=== PATIENT | female | born 1970 | race Caucasian/White ===

== ENCOUNTER 2016-06-20 20:28 | Emergency (ER) | payer MEDICAID ==
[2015-10-20 11:06] VITALS: Ht 167.6 cm; Wt 126.1 kg
[~2016-06-20] VITALS: Ht 167.6 cm; Wt 126.1 kg
[~2016-06-20 20:28] MED LIST: ALPR0.2583 PO; ALPR0.5T96 PO; ARIP5TAB10 PO; ASPI-1063 PO; BENA10TA2 PO; CALCIUM D; CLON1PAT2 TD; CLON1TAB4 PO; CLON2TAB4 PO; DIVA250T PO; DIVA500T7 PO; ESCI20TA PO; FURO-150 PO; LANS30CA10 PO; LIP10 PO; LIP20 PO; LOSA50TA3 PO; MULT PO; PARO10TA26 PO; POTA8CAP PO; QUET50TA13 PO
[2016-06-20 21:00] VITALS: BP 157/94; PULSE 62; RESP 16; TEMP 97.2; O2SAT 96
[2016-06-20] MEDS ORDERED: KETOROLAC TROMETHAMINE 30 MG VIAL IVP ONE (22:30)
[2016-06-20] MEDS ORDERED: NACL 0.9% 1,000 ML IV ONE (22:30)
[2016-06-20 22:55] LABS: BILIRUBIN,URINE NEGATIVE (NEGATIVE); BLOOD, URINE NEGATIVE (NEGATIVE); CLARITY/URINE CLEAR (CLEAR); COLOR,URINE YELLOW (YELLOW); GLUCOSE,URINE NEGATIVE (NEGATIVE); KETONES,URINE NEGATIVE (NEGATIVE); LEUKOCYTE ESTERASE ,URINE NEGATIVE (NEGATIVE); NITRITE, URINE NEGATIVE (NEGATIVE); PH,URINE 6.5 (5.0-8.0); PROTEIN URINE NEGATIVE (NEGATIVE); UROBILINOGEN,URINE 0.2 (0.2-1.0)
[2016-06-21 01:11] VITALS: BP 148/89; PULSE 54; RESP 16; TEMP 97.2; O2SAT 96
== END 2016-06-21 01:11 | disposition home or self-care (01) ==
LOC: SED 20:28
DX: A08.4 Viral intestinal infection, unspecified (principal); K21.9 Gastro-esophageal reflux disease without esophagitis; I10 Essential (primary) hypertension; E78.5 Hyperlipidemia, unspecified; Z86.718 Personal history of other venous thrombosis and embolism; Z88.1 Allergy status to other antibiotic agents; Z88.8 Allergy status to other drugs, medicaments and biological substances
CPT/HCPCS: 36415; 81003; 81025; 86710; 93005; 96361; 96374; 99285; J1885; J7030

== ENCOUNTER 2016-08-29 10:52 | Emergency (ER) | payer MEDICAID ==
[~2016-08-29] VITALS: Ht 165.1 cm; Wt 128.4 kg
[~2016-08-29 10:52] MED LIST changes: -ALPR0.5T96 PO; -BENA10TA2 PO; -CLON1PAT2 TD; -FURO-150 PO; -LANS30CA10 PO; -PARO10TA26 PO; -POTA8CAP PO; -QUET50TA13 PO
[2016-08-29 10:55] VITALS: BP_SYST 155
[2016-08-29] MEDS ORDERED: BACITRACIN 1 GM OINT TP ONE (11:15)
[2016-08-29] MEDS ORDERED: DIPH-TET-PERTUS Vaccine 0.5 ML VIAL (ADACEL) IM ONE (11:15)
[2016-08-29 12:15] VITALS: BP_SYST 141
== END 2016-08-29 12:15 | disposition home or self-care (01) ==
LOC: SED 10:52
DX: S61.051A Open bite of right thumb without damage to nail, initial encounter (principal); K21.9 Gastro-esophageal reflux disease without esophagitis; I10 Essential (primary) hypertension; E78.00 Pure hypercholesterolemia, unspecified; Z86.718 Personal history of other venous thrombosis and embolism; Z86.59 Personal history of other mental and behavioral disorders; Z88.1 Allergy status to other antibiotic agents; Z79.899 Other long term (current) drug therapy; Z88.8 Allergy status to other drugs, medicaments and biological substances; W54.0XXA Bitten by dog, initial encounter; Y93.89 Activity, other specified; Y92.89 Other specified places as the place of occurrence of the external cause; Y99.8 Other external cause status
CPT/HCPCS: 90715; 99283

== ENCOUNTER 2016-10-04 12:02 | Emergency (ER) | payer MEDICAID ==
[~2016-10-04] VITALS: Ht 165.1 cm; Wt 125.2 kg
[2016-10-04 12:45] VITALS: BP_SYST 144
[2016-10-04 13:02] LABS: BASOPHILS % (AUTO) 0.6 % (0.0-2.0); EOSINOPHILS % (AUTO) 0.7 % (0.0-4.0); HEMATOCRIT 39.8 % (36-48); HEMOGLOBIN 12.9 g/dL (12.0-16.0); LYMPHOCYTES # (AUTO) 3.1 K/uL (1.0-5.5); LYMPHOCYTES % (AUTO) 43.3 % (20.5-51.5); MEAN CORPUSCULAR HEMOGLOBIN 26 pg (27-31); MEAN CORPUSCULAR HGB CONC 32 % (32-36); MEAN CORPUSCULAR VOLUME 81 fL (79.0-98.0); MONOCYTES # (AUTO) 0.4 K/uL (0.0-1.0); MONOCYTES % (AUTO) 5.1 % (1.7-9.3); NEUTROPHILS # (AUTO) 3.6 K/uL (1.8-7.7); NEUTROPHILS % (AUTO) 50.3 % (40.0-70.0); PLATELET COUNT (AUTO) 162 K/uL (130-430); RED BLOOD CELL COUNT(AUTO) 4.93 MIL/uL (4.2-6.2); RED CELL DISTRIBUTION WIDTH 12.5 % (9.0-15.0); WHITE BLOOD COUNT (AUTO) 7.1 K/uL (4.8-10.8)
[2016-10-04 13:03] LABS: CALCIUM 9.4 mg/dL (8.4-11.0); CREATININE 0.62 mg/dL (0.55-1.30); POTASSIUM 3.8 mmol/L (3.5-5.1)
[2016-10-04 13:08] LABS: ALBUMIN 4.3 g/dL (3.4-4.8); TOTAL BILIRUBIN 0.6 mg/dL (0.0-1.0); TOTAL PROTEIN, SERUM 7.6 g/dL (6.4-8.3)
[2016-10-04 13:10] LABS: PROTHROMBIN TIME 10.8 SECS (9.5-12.5)
[2016-10-04] MEDS ORDERED: ENOXAPARIN SODIUM 120 MG/0.8 ML SYRINGE SUBCUT ONE (14:00)
[2016-10-04] MEDS ORDERED: WARFARIN SODIUM 7.5 MG TABLET PO ONE (14:00)
[2016-10-04 14:33] VITALS: BP_SYST 130
== END 2016-10-04 14:32 | disposition home or self-care (01) ==
LOC: SED 12:02
DX: I82.622 Acute embolism and thrombosis of deep veins of left upper extremity (principal); K21.9 Gastro-esophageal reflux disease without esophagitis; I10 Essential (primary) hypertension; E78.5 Hyperlipidemia, unspecified; Z87.891 Personal history of nicotine dependence; Z88.1 Allergy status to other antibiotic agents
CPT/HCPCS: 36415; 80053; 81025; 85025; 85610; 85730; 93971; 96372; 99285; J1650

== ENCOUNTER 2017-02-26 08:45 | Emergency (ER) | payer MEDICAID ==
[2015-10-20 11:06] VITALS: Ht 172.7 cm; Wt 127.0 kg
[~2017-02-26] VITALS: Ht 172.7 cm; Wt 127.0 kg
[~2017-02-26 08:45] MED LIST changes: +ALPR0.5T96 PO; +BENA10TA2 PO; +CLON1PAT2 TD; +FURO-150 PO; +LANS30CA10 PO; +PARO10TA26 PO; +POTA8CAP PO; +QUET50TA13 PO
[2017-02-26 08:46] VITALS: BP 131/67; PULSE 76; RESP 16; TEMP 97.1; O2SAT 96
[2017-02-26 09:34] LABS: BASOPHILS % (AUTO) 0.3 % (0.0-2.0); EOSINOPHILS # (AUTO) 0.1 K/uL (0.0-0.4); EOSINOPHILS % (AUTO) 1.1 % (0.0-4.0); HEMATOCRIT 38.4 % (36-48); HEMOGLOBIN 12.3 g/dL (12.0-16.0); LYMPHOCYTES # (AUTO) 2.2 K/uL (1.0-5.5); LYMPHOCYTES % (AUTO) 37.5 % (20.5-51.5); MEAN CORPUSCULAR HEMOGLOBIN 26 pg (27-31); MEAN CORPUSCULAR HGB CONC 32 % (32-36); MEAN CORPUSCULAR VOLUME 81 fL (79.0-98.0); MONOCYTES # (AUTO) 0.3 K/uL (0.0-1.0); MONOCYTES % (AUTO) 4.4 % (1.7-9.3); NEUTROPHILS # (AUTO) 3.2 K/uL (1.8-7.7); NEUTROPHILS % (AUTO) 56.7 % (40.0-70.0); PLATELET COUNT (AUTO) 166 K/uL (130-430); RED BLOOD CELL COUNT(AUTO) 4.75 MIL/uL (4.2-6.2); RED CELL DISTRIBUTION WIDTH 12.6 % (9.0-15.0); WHITE BLOOD COUNT (AUTO) 5.8 K/uL (4.8-10.8)
[2017-02-26 09:45] LABS: INR 2.6 (0.8-1.2); PROTHROMBIN TIME 29.7 SECS (9.5-12.5)
[2017-02-26 09:53] LABS: ALBUMIN 3.6 g/dL (3.4-4.8); CALCIUM 9.5 mg/dL (8.4-11.0); CREATININE 0.54 mg/dL (0.55-1.30); TOTAL BILIRUBIN 0.5 mg/dL (0.0-1.0)
[2017-02-26 10:35] VITALS: BP 128/70; PULSE 70; RESP 19; TEMP 97.1; O2SAT 97
== END 2017-02-26 10:35 | disposition home or self-care (01) ==
LOC: SED 08:45
DX: J40 Bronchitis, not specified as acute or chronic (principal); R06.02 Shortness of breath; K21.9 Gastro-esophageal reflux disease without esophagitis; I10 Essential (primary) hypertension; E78.5 Hyperlipidemia, unspecified; Z68.41 Body mass index [BMI] 40.0-44.9, adult; E66.01 Morbid (severe) obesity due to excess calories; Z86.718 Personal history of other venous thrombosis and embolism; Z88.1 Allergy status to other antibiotic agents; Z88.2 Allergy status to sulfonamides; Z79.899 Other long term (current) drug therapy; Z88.8 Allergy status to other drugs, medicaments and biological substances
CPT/HCPCS: 36415; 71010; 80053; 83880; 85025; 85379; 85610-TC; 85730-TC; 93005; 99285

== ENCOUNTER 2017-08-22 11:16 | Inpatient (IN) | payer MEDICAID ==
[~2017-08-22] VITALS: Ht 165.1 cm; Wt 125.6 kg
[2017-08-22 11:16] VITALS: BP_SYST 162
[~2017-08-22 11:16] MED LIST changes: -ALPR0.5T96 PO; -BENA10TA2 PO; -CLON1PAT2 TD; -FURO-150 PO; -LANS30CA10 PO; -PARO10TA26 PO; -POTA8CAP PO; -QUET50TA13 PO
[2017-08-22 13:36] LABS: CALCIUM 9.6 mg/dL (8.4-11.0); CREATININE 0.45 mg/dL (0.55-1.30)
[2017-08-22 13:40] LABS: ALBUMIN 4.2 g/dL (3.4-4.8); TOTAL BILIRUBIN 0.6 mg/dL (0.0-1.0)
[2017-08-22 13:48] LABS: INR 3.2 (0.8-1.2); PROTHROMBIN TIME 32.5 SECS (9.5-12.5)
[2017-08-22 14:09] LABS: BASOPHILS % (AUTO) 0.5 % (0.0-2.0); EOSINOPHILS % (AUTO) 0.8 % (0.0-4.0); HEMOGLOBIN 13.2 g/dL (12.0-16.0); LYMPHOCYTES # (AUTO) 3.1 K/uL (1.0-5.5); LYMPHOCYTES % (AUTO) 53.5 % (20.5-51.5); MEAN CORPUSCULAR HEMOGLOBIN 26 pg (27-31); MEAN CORPUSCULAR HGB CONC 32 % (32-36); MEAN CORPUSCULAR VOLUME 80 fL (79.0-98.0); MONOCYTES # (AUTO) 0.3 K/uL (0.0-1.0); MONOCYTES % (AUTO) 4.6 % (1.7-9.3); NEUTROPHILS # (AUTO) 2.3 K/uL (1.8-7.7); NEUTROPHILS % (AUTO) 40.6 % (40.0-70.0); PLATELET COUNT (AUTO) 168 K/uL (130-430); RED BLOOD CELL COUNT(AUTO) 5.13 MIL/uL (4.2-6.2); RED CELL DISTRIBUTION WIDTH 12.9 % (9.0-15.0); WHITE BLOOD COUNT (AUTO) 5.7 K/uL (4.8-10.8)
[2017-08-22] MEDS ORDERED: ASPIRIN 81 MG TAB.CHEW PO ONE (14:45)
[2017-08-22 16:07] VITALS: BP_SYST 113
[2017-08-22] MEDS ORDERED: PHYTONADIONE 5 MG TABLET PO ONE (19:45)
[2017-08-22] MEDS ORDERED: DIVALPROEX SODIUM 250 MG TAB.SR.24H (DEPAKOTE ER) PO ONE (19:45)
[2017-08-22] MEDS ORDERED: MULTIVITAMINS TAB 1 TABLET PO ONE (19:45)
[2017-08-22] MEDS ORDERED: ESCITALOPRAM OXALATE 10 MG TABLET PO SCH (19:45)
[2017-08-22] MEDS ORDERED: ARIPiprazole 5 MG TAB PO ONE (19:45)
[2017-08-22] MEDS ORDERED: LOSARTAN POTASSIUM 50 MG TABLET (COZAAR) PO ONE (19:45)
[2017-08-22 20:00] VITALS: BP_SYST 135
[2017-08-22] MEDS ORDERED: PANTOPRAZOLE SODIUM 80 MG in NS 100 ML IV ONE (20:00)
[2017-08-22] MEDS ORDERED: DIVALPROEX SODIUM 250 MG TABLET(DEPAKOTE) PO ONE (20:39)
[2017-08-22] MEDS: PANTOPRAZOLE SODIUM 40 MG/VIAL (PROTONIX) IVP SCH (20:47)
[2017-08-22] MEDS: clonazePAM 0.5 MG TABLET PO SCH (20:47)
[2017-08-22] MEDS ORDERED: ATORVASTATIN 10 MG TABLET PO SCH (21:00)
[2017-08-22] MEDS ORDERED: DIVALPROEX SODIUM 500 MG TABLET( DEPAKOTE) PO SCH (21:00)
[2017-08-23 00:05] VITALS: BP_SYST 133
[2017-08-23] MEDS ORDERED: PANTOPRAZOLE SODIUM 40 MG in NS 50 ML IV SCH (01:00)
[2017-08-23 07:51] LABS: BASOPHILS % (AUTO) 0.5 % (0.0-2.0); EOSINOPHILS # (AUTO) 0.1 K/uL (0.0-0.4); EOSINOPHILS % (AUTO) 1.8 % (0.0-4.0); HEMATOCRIT 36.6 % (36-48); HEMOGLOBIN 11.7 g/dL (12.0-16.0); LYMPHOCYTES # (AUTO) 2.7 K/uL (1.0-5.5); LYMPHOCYTES % (AUTO) 54.8 % (20.5-51.5); MEAN CORPUSCULAR HEMOGLOBIN 26 pg (27-31); MEAN CORPUSCULAR HGB CONC 32 % (32-36); MEAN CORPUSCULAR VOLUME 80 fL (79.0-98.0); MONOCYTES # (AUTO) 0.3 K/uL (0.0-1.0); MONOCYTES % (AUTO) 5.2 % (1.7-9.3); NEUTROPHILS # (AUTO) 1.9 K/uL (1.8-7.7); NEUTROPHILS % (AUTO) 37.7 % (40.0-70.0); PLATELET COUNT (AUTO) 139 K/uL (130-430); RED BLOOD CELL COUNT(AUTO) 4.56 MIL/uL (4.2-6.2); RED CELL DISTRIBUTION WIDTH 12.9 % (9.0-15.0)
[2017-08-23 08:00] VITALS: BP_SYST 144
[2017-08-23 08:14] LABS: CALCIUM 8.8 mg/dL (8.4-11.0); CREATININE 0.56 mg/dL (0.55-1.30); POTASSIUM 4.1 mmol/L (3.5-5.1)
[2017-08-23] MEDS ORDERED: ARIPiprazole 5 MG TAB PO SCH (09:00)
[2017-08-23] MEDS ORDERED: LOSARTAN POTASSIUM 50 MG TABLET (COZAAR) PO SCH (09:00)
[2017-08-23] MEDS ORDERED: MULTIVITAMINS TAB 1 TABLET PO SCH (09:00)
[2017-08-23] MEDS ORDERED: DIVALPROEX SODIUM 250 MG TAB.SR.24H (DEPAKOTE ER) PO SCH (09:00)
[2017-08-23] MEDS ORDERED: CITALOPRAM HYDROBROMIDE 20 MG TABLET PO SCH (09:00)
[2017-08-23] MEDS: clonazePAM 0.5 MG TABLET PO SCH (09:07)
[2017-08-23] MEDS: PANTOPRAZOLE SODIUM 40 MG/VIAL (PROTONIX) IVP SCH (09:08)
[2017-08-23 12:45] VITALS: BP_SYST 152
[2017-08-23 14:30] VITALS: BP_SYST 145
[2017-08-23 16:29] LABS: INR 1.6 (0.8-1.2)
[2017-08-23 16:43] VITALS: BP_SYST 145
[2017-08-23] MEDS ORDERED: PHYTONADIONE 5 MG TABLET PO ONE (17:00)
[2017-08-23 17:04] VITALS: BP_SYST 140
== END 2017-08-23 19:44 | disposition home or self-care (01) | DRG 661 ==
LOC: SED 11:16 → STU 15:29 → SMU 08-23 15:55
PROVIDERS: ADMIT Internal Medicine; ATTEND Internal Medicine
DX: D68.32 Hemorrhagic disorder due to extrinsic circulating anticoagulants (principal); I21.A1 Myocardial infarction type 2; R04.2 Hemoptysis; I10 Essential (primary) hypertension; Z68.42 Body mass index [BMI] 45.0-49.9, adult; K21.9 Gastro-esophageal reflux disease without esophagitis; E78.5 Hyperlipidemia, unspecified; Z90.710 Acquired absence of both cervix and uterus; E66.9 Obesity, unspecified; F41.9 Anxiety disorder, unspecified; F40.00 Agoraphobia, unspecified; F31.9 Bipolar disorder, unspecified; G47.33 Obstructive sleep apnea (adult) (pediatric); Z88.2 Allergy status to sulfonamides; Z86.718 Personal history of other venous thrombosis and embolism; Z79.82 Long term (current) use of aspirin; Z88.1 Allergy status to other antibiotic agents; Z79.01 Long term (current) use of anticoagulants; T45.515A Adverse effect of anticoagulants, initial encounter; Z83.3 Family history of diabetes mellitus; Z87.891 Personal history of nicotine dependence
CPT/HCPCS: 36415; 71046-TC; 71250-TC; 80048; 80053; 83880; 84484; 84703; 85025; 85610-TC; 85730-TC; 93005; 93306; 93971; C9113

== ENCOUNTER 2018-02-22 20:43 | Emergency (ER) | payer MEDICAID ==
[~2018-02-22] VITALS: Ht 167.6 cm; Wt 127.0 kg
[~2018-02-22 20:43] MED LIST changes: -ALPR0.2583 PO; -ASPI-1063 PO; +ASPI-1153 PO; -CLON1TAB4 PO; +CLON2TAB11 PO; -CLON2TAB4 PO
[2018-02-22 20:51] VITALS: BP_SYST 153
[2018-02-22] MEDS ORDERED: DIVA250T PO (21:14)
[2018-02-22 22:24] LABS: BASOPHILS % (AUTO) 0.5 % (0.0-2.0); EOSINOPHILS % (AUTO) 0.6 % (0.0-4.0); HEMATOCRIT 40.3 % (36-48); HEMOGLOBIN 13.2 g/dL (12.0-16.0); LYMPHOCYTES # (AUTO) 2.2 K/uL (1.0-5.5); LYMPHOCYTES % (AUTO) 34.9 % (20.5-51.5); MEAN CORPUSCULAR HEMOGLOBIN 27 pg (27-31); MEAN CORPUSCULAR HGB CONC 33 % (32-36); MEAN CORPUSCULAR VOLUME 81 fL (79.0-98.0); MONOCYTES # (AUTO) 0.3 K/uL (0.0-1.0); MONOCYTES % (AUTO) 4.5 % (1.7-9.3); NEUTROPHILS # (AUTO) 3.8 K/uL (1.8-7.7); NEUTROPHILS % (AUTO) 59.5 % (40.0-70.0); PLATELET COUNT (AUTO) 197 K/uL (130-430); RED BLOOD CELL COUNT(AUTO) 4.98 MIL/uL (4.2-6.2); RED CELL DISTRIBUTION WIDTH 12.1 % (9.0-15.0); WHITE BLOOD COUNT (AUTO) 6.3 K/uL (4.8-10.8)
[2018-02-22 22:36] LABS: CALCIUM 9.7 mg/dL (8.4-11.0); CREATININE 0.53 mg/dL (0.55-1.30)
[2018-02-22 22:40] LABS: PROTHROMBIN TIME 9.9 SECS (9.5-12.5)
[2018-02-22 22:41] LABS: ALBUMIN 4.2 g/dL (3.4-4.8); TOTAL BILIRUBIN 0.5 mg/dL (0.0-1.0)
[2018-02-22 22:49] VITALS: BP_SYST 145
== END 2018-02-22 22:49 | disposition home or self-care (01) ==
LOC: SED 20:43
DX: S80.11XA Contusion of right lower leg, initial encounter (principal); K21.9 Gastro-esophageal reflux disease without esophagitis; E78.5 Hyperlipidemia, unspecified; I10 Essential (primary) hypertension; Z86.718 Personal history of other venous thrombosis and embolism; Z88.1 Allergy status to other antibiotic agents; Z88.8 Allergy status to other drugs, medicaments and biological substances; Z79.899 Other long term (current) drug therapy; W19.XXXA Unspecified fall, initial encounter; Y93.89 Activity, other specified; Y92.89 Other specified places as the place of occurrence of the external cause; Y99.8 Other external cause status
CPT/HCPCS: 36415; 80053; 85025; 85610-TC; 85730-TC; 93971; 99285

== ENCOUNTER 2018-07-08 14:27 | Emergency (ER) | payer MEDICAID ==
[~2018-07-08] VITALS: Ht 167.6 cm; Wt 131.5 kg
[~2018-07-08 14:27] MED LIST changes: -DIVA500T7 PO; -LIP20 PO
[2018-07-08 14:39] VITALS: BP_SYST 161
--- NOTE | 2018-07-08 16:21 | NUR ---
Patient to ER bed 6 to gown for evaluation. Side rails up. Report given to Alvaro ADAMS.
--- NOTE | 2018-07-08 16:32 | NUR ---
Pt c/o R thigh pain since yesterday. Pt h/o DVT R upper arm,pt also reports h/o HTN,hyperlipidenmia
--- NOTE | 2018-07-08 16:34 | NUR ---
COURTNEY Campo at bedside examining patient.
[2018-07-08 17:00] VITALS: BP_SYST 155
--- NOTE | 2018-07-08 17:00 | NUR ---
Patient given written and verbal discharge instructions and verbalizes understanding. ER MD discussed with patient the results and treatment provided. Patient in stable condition. ID arm band removed. no Rx of given. Patient educated on pain management and to follow up with PMD. Pain Scale 2. Opportunity for questions provided and answered. Medication side effect fact sheet provided.
== END 2018-07-08 17:00 | disposition home or self-care (01) ==
LOC: SED 14:27
DX: S86.911A Strain of unspecified muscle(s) and tendon(s) at lower leg level, right leg, initial encounter (principal); K21.9 Gastro-esophageal reflux disease without esophagitis; I10 Essential (primary) hypertension; E78.5 Hyperlipidemia, unspecified; Z86.718 Personal history of other venous thrombosis and embolism; Z88.1 Allergy status to other antibiotic agents; Z79.82 Long term (current) use of aspirin; Z79.899 Other long term (current) drug therapy; X58.XXXA Exposure to other specified factors, initial encounter; Y93.89 Activity, other specified; Y92.89 Other specified places as the place of occurrence of the external cause; Y99.8 Other external cause status
CPT/HCPCS: 93971; 99284

== ENCOUNTER 2018-07-18 11:03 | Inpatient (IN) | payer MEDICAID ==
[~2018-07-18] VITALS: Ht 165.1 cm; Wt 131.5 kg
[2018-07-18 11:16] VITALS: BP_SYST 166
--- NOTE | 2018-07-18 11:20 | NUR ---
Ambulatory to bed 3
--- NOTE | 2018-07-18 11:30 | NUR ---
Patient arrived via POV, AAOx4, and ambulatory with steady gait. Patient c/c of intermittent chest pain, coughing blood, intermittent shortness of breath. Patient not currently having shortness of breath, 98% on pulse oximetry. Patietn states no chest pain at this time. Patient states she has history of DVT of left arm. Patient requesting and ultrasound related to intermittent abdominal pain. Patient able to provide urine specimen. Patient denies nausea, vomiting, diarrhea, cough. Will continue to monitor and follow up with patient.
--- NOTE | 2018-07-18 11:45 | NUR ---
ER Dr. Sosa at bedside examining patient.
[2018-07-18 12:37] LABS: BILIRUBIN,URINE NEGATIVE (NEGATIVE); BLOOD, URINE NEGATIVE (NEGATIVE); CLARITY/URINE CLEAR (CLEAR); COLOR,URINE YELLOW (YELLOW); GLUCOSE,URINE NEGATIVE (NEGATIVE); KETONES,URINE NEGATIVE (NEGATIVE); LEUKOCYTE ESTERASE ,URINE NEGATIVE (NEGATIVE); NITRITE, URINE NEGATIVE (NEGATIVE); PH,URINE 5.5 (5.0-8.0); PROTEIN URINE NEGATIVE (NEGATIVE); UROBILINOGEN,URINE 0.2 (0.2-1.0)
[2018-07-18 13:02] LABS: CALCIUM 9.1 mg/dL (8.4-11.0); CREATININE 0.47 mg/dL (0.55-1.30); POTASSIUM 4.2 mmol/L (3.5-5.1)
[2018-07-18 13:05] LABS: HEMATOCRIT 39.2 % (36-48); HEMOGLOBIN 12.3 g/dL (12.0-16.0); MEAN CORPUSCULAR HEMOGLOBIN 26 pg (27-31); MEAN CORPUSCULAR VOLUME 82 fL (79.0-98.0); PROTHROMBIN TIME 10.5 SECS (9.5-12.5); RED BLOOD CELL COUNT(AUTO) 4.77 MIL/uL (4.2-6.2); WHITE BLOOD COUNT (AUTO) 5.5 K/uL (4.8-10.8)
[2018-07-18 13:06] LABS: BASOPHILS % (AUTO) 0.4 % (0.0-2.0); EOSINOPHILS % (AUTO) 0.8 % (0.0-4.0); LYMPHOCYTES # (AUTO) 2.3 K/uL (1.0-5.5); MEAN CORPUSCULAR HGB CONC 31 % (32-36); MONOCYTES # (AUTO) 0.3 K/uL (0.0-1.0); MONOCYTES % (AUTO) 5.6 % (1.7-9.3); NEUTROPHILS # (AUTO) 2.8 K/uL (1.8-7.7); NEUTROPHILS % (AUTO) 51.2 % (40.0-70.0); PLATELET COUNT (AUTO) 164 K/uL (130-430); RED CELL DISTRIBUTION WIDTH 13.1 % (9.0-15.0)
[2018-07-18 13:07] LABS: ALBUMIN 3.5 g/dL (3.4-4.8); TOTAL BILIRUBIN 0.6 mg/dL (0.0-1.0)
--- NOTE | 2018-07-18 13:58 | NUR ---
Orders received from Dr. Smith, entered by RN. Called for bed assignment.
--- NOTE | 2018-07-18 14:00 | NUR ---
aPatient will be admitted to care of Dr. Smith. Admitted to Tele unit. Will go to room 117A. Belongings list completed. Summary report printed. Report will be given at bedside.
--- NOTE | 2018-07-18 14:11 | NUR ---
Patient in ultrasound currently, will update her regarding status upon return.
--- NOTE | 2018-07-18 14:31 | NUR ---
Patient returned from ultrasound.
--- NOTE | 2018-07-18 14:36 | NUR ---
Patient updated on status of admission. Patient agreeable; however, her sister is getting tomorrow afternoon.
--- NOTE | 2018-07-18 14:43 | NUR ---
Patient will be admitted to care of Dr. Smith. Admitted to MedSurg unit. Will go to room 117A. Belongings list completed. Summary report printed. Report will be given at bedside.
--- NOTE | 2018-07-18 14:43 | NUR ---
Medication reconciliation completed with information provided by patient . Any prior medication reconciliation on file was reviewed and corrected.
[2018-07-18] MEDS ORDERED: LORazepam 2 MG/ML VIAL IVP PRN (15:00)
[2018-07-18] MEDS ORDERED: ACETAMINOPHEN 325 MG TABLET PO PRN (15:00)
[2018-07-18] MEDS ORDERED: MORPHINE 4 MG/ML INJ. SYRINGE IVP PRN (15:00)
[2018-07-18] MEDS ORDERED: NITROGLYCERIN 0.4 MG TAB.SUBL SL PRN (15:00)
[2018-07-18] MEDS ORDERED: ZOLPIDEM TARTRATE 5 MG TABLET PO PRN (15:00)
--- NOTE | 2018-07-18 15:05 | NUR ---
Admission Note Received patient from ER with diagnosis of chest pain. Initial Plan of Care discussed-patient verbalized understanding. Family at bedside. Oriented to room, call light, pain management and safety.
--- NOTE | 2018-07-18 15:06 | NUR ---
CONSULTATION PAGED/CALLED Reason for Consultation: [] CHEST PAIN Person Who was Notified: [] DELIRIA Consulting Physician: [] DR ROGERS Dock Grader Specialty: [] CARDIOLOGY Ordering Physician: [] DR MARKHAM
[2018-07-18] MEDS ORDERED: METOPROLOL TARTRATE 25 MG TABLET PO ONE (15:15)
[2018-07-18 15:33] VITALS: BP_SYST 142
--- NOTE | 2018-07-18 16:15 | NUR ---
Note Rec'd report from admit RN - Marcia Bennett for continuation of care at 1540. Pt was oriented to nursing routines and procedures. Admission assessment was completed at this time. Pt has her tele unit attached and intact since admission to floor. IV in right forearm intact and patent at this time. Pt has denied chest pain since admission to floor. Call light within reach.
[2018-07-18 16:19] VITALS: BP_SYST 140
[2018-07-18] MEDS: NACL 0.9% 1,000 ML IV SCH (16:37)
--- NOTE | 2018-07-18 18:00 | NUR ---
Note Pt sitting on side of bed eating her cardiac diet for dinner. IVF's infusing well through right hand IV site. No SOB/resp distress or chest pain/discomfort or bloody emesis noted all shift. Pt was checked on q1' and PRN all shift for needs and care. Tele unit intact and attached all shift. No needs noted. Call light within reach. Pt ambulates without pain/unsteadiness or weakness all shift.
--- NOTE | 2018-07-18 18:15 | NUR ---
NOTE PT WAS SEEN AND ASSESSED BY DR ROGERS AT BEDSIDE AT THIS TIME. ORDERS WRITTEN AND CARRIED OUT AT THIS TIME.
--- NOTE | 2018-07-18 19:20 | NUR ---
Bedside report was received from day shift nurse. Pt is fully AAO x4. No c/o pain or discomfort at this time. IVF of NS is infusing well in RFA at 90ml/hr without any signs of infiltration. Fall and safety precautions are in place. Call light is with pt and bed is in the lowest and locked positions. Pt was instructed to call for assistance as needed and pt verbalized understanding.
[2018-07-18 20:00] VITALS: BP_SYST 133
[2018-07-18] MEDS ORDERED: DIVA500T PO (20:20)
--- NOTE | 2018-07-18 20:29 | NUR ---
New orders for HS Depakote obtained from Dr. Smith per pt's request.
--- NOTE | 2018-07-18 20:55 | NUR ---
IV site in RFA swollen and pt c/o pain at the site. Angiocath was removed intact, followed by pressure dressing. New IV was restarted in RFA with Angiocath 20G by Nurse Castro.
[2018-07-18] MEDS ORDERED: clonazePAM 0.5 MG TABLET PO SCH (21:00)
[2018-07-18] MEDS ORDERED: DIVALPROEX SODIUM 500 MG TABLET( DEPAKOTE) PO SCH (21:00)
[2018-07-18] MEDS ORDERED: METOPROLOL TARTRATE 25 MG TABLET PO SCH (21:00)
--- NOTE | 2018-07-18 21:24 | NUR ---
PAGED PAGING DR. ROGERS
--- NOTE | 2018-07-18 21:30 | NUR ---
Troponin 0.[address] Partida was notified. Pt's heart rates are in the 50's and 40's. Pt is asymptomatic. Dr. Partida was also informed of the heart rates. No new orders given.
--- NOTE | 2018-07-18 23:00 | NUR ---
Pt is sleeping without any distress noted. Fall and safety precautions are in place.
[2018-07-19] VITALS: BP_SYST 129
--- NOTE | 2018-07-19 01:00 | NUR ---
Pt is sleeping comfortably in bed. IVF is infusing well in RFA. Fall and safety precautions are in place.
--- NOTE | 2018-07-19 03:00 | NUR ---
Pt is sleeping without any distress noted. IVF is infusing well in RFA. Fall and safety precautions are in place.
[2018-07-19] MEDS: NACL 0.9% 1,000 ML IV SCH (04:03)
--- NOTE | 2018-07-19 05:00 | NUR ---
Pt continues to sleep comfortably in bed.
--- NOTE | 2018-07-19 05:47 | NUR ---
Pt was seen by Dr. Smith who wrote discharge order. Pt stated she has to be at her sister's wedding today at noon.
--- NOTE | 2018-07-19 06:35 | NUR ---
Pt stated her sister had a bachelorette's democrat last night and she wants her sister to sleep an extra hour before she calls her sister to come and pick her up. Pt stated if her sister is not able to pick her up, she will use car service.
[2018-07-19 06:44] VITALS: BP_SYST 135
--- NOTE | 2018-07-19 06:45 | NUR ---
Pt refused lab draw. Pt told women's garment fitter she has been discharged and does not want any blood drawn from her.
--- NOTE | 2018-07-19 07:35 | NUR ---
Note Pt off the floor dressed in street clothes and packed belongings. Pt's IV was dc'd - right forearm. Tele unit was dc'd and returned to apparatus engineering technologist. Pt was given discharge instructions and questions/concerns were answered at this time.
--- NOTE | 2018-07-19 07:41 | NUR ---
Nutrition Update Ernesto Scale 18 noted. Pt admitted for chest pain Diet: cardiac low CHOL low fat 2gm Na diet BMI: 48.3 kg/m2 RD to follow per nutrition care standards.
[2018-07-19] MEDS ORDERED: LOSARTAN POTASSIUM 50 MG TABLET (COZAAR) PO SCH (09:00)
[2018-07-19] MEDS ORDERED: ASPIRIN 81 MG TAB.CHEW PO SCH (09:00)
[2018-07-19] MEDS ORDERED: ARIPiprazole 5 MG TAB PO SCH (09:00)
[2018-07-19] MEDS ORDERED: ATORVASTATIN 20 MG TABLET PO SCH (09:00)
[2018-07-19] MEDS ORDERED: ENOXAPARIN SODIUM 40 MG/0.4 ML SYRINGE SUBCUT SCH (09:00)
[2018-07-19] MEDS ORDERED: CITALOPRAM HYDROBROMIDE 20 MG TABLET PO SCH (09:00)
[2018-07-19] MEDS ORDERED: CLOPIDOGREL BISULFATE 75 MG TABLET PO SCH (09:00)
[2018-07-19] MEDS ORDERED: DIVALPROEX SODIUM 250 MG TAB.SR.24H (DEPAKOTE ER) PO SCH (09:00)
== END 2018-07-19 07:35 | disposition home or self-care (01) | DRG 190 ==
LOC: SED 11:03 → STU 14:12
PROVIDERS: ADMIT General Practice; ATTEND General Practice
DX: I21.A1 Myocardial infarction type 2 (principal); E66.01 Morbid (severe) obesity due to excess calories; R07.89 Other chest pain; D64.9 Anemia, unspecified; E78.5 Hyperlipidemia, unspecified; F17.210 Nicotine dependence, cigarettes, uncomplicated; K21.9 Gastro-esophageal reflux disease without esophagitis; G47.30 Sleep apnea, unspecified; I10 Essential (primary) hypertension; F41.9 Anxiety disorder, unspecified; F31.9 Bipolar disorder, unspecified; Z79.01 Long term (current) use of anticoagulants; Z82.0 Family history of epilepsy and other diseases of the nervous system; Z86.718 Personal history of other venous thrombosis and embolism; Z90.710 Acquired absence of both cervix and uterus; Z88.8 Allergy status to other drugs, medicaments and biological substances; Z88.1 Allergy status to other antibiotic agents; Z79.899 Other long term (current) drug therapy; Z79.82 Long term (current) use of aspirin; Z82.49 Family history of ischemic heart disease and other diseases of the circulatory system; Z68.42 Body mass index [BMI] 45.0-49.9, adult
CPT/HCPCS: 36415; 71045; 80053; 81003; 82550-TC; 83880; 84484; 85025; 85379; 85610-TC; 85730-TC; 93005; 93970; 99285; G0378; J7030

== ENCOUNTER 2018-11-10 13:50 | Inpatient (IN) | payer MEDICAID ==
[~2018-11-10] VITALS: Ht 165.1 cm; Wt 133.8 kg
[~2018-11-10 13:50] MED LIST changes: +DIVA500T PO
[2018-11-10 13:51] VITALS: BP_SYST 161
--- NOTE | 2018-11-10 13:55 | NUR ---
Patient triaged and placed in waiting room. VSS and patient appears in no acute distress at this time. Accompanied by self, awaiting available bed, and MD notified of need for MSE.
--- NOTE | 2018-11-10 18:55 | NUR ---
Placed in bed 1 to gown for exam.
--- NOTE | 2018-11-10 18:57 | NUR ---
COURTNEY LANCASTER examining patient.
--- NOTE | 2018-11-10 19:10 | NUR ---
Pt BIB sister C/O generalized weakness, chills, and chest pressure x 3 days. Also C/O "sweating " for the past 3 months. Pt denies any N/V/D, fever, shortness of breath, or any other symptoms at this time. Will continue to monitor.
--- NOTE | 2018-11-10 19:44 | NUR ---
ER Dr. Gomez at bedside examining patient.
[2018-11-10] MEDS ORDERED: ASPIRIN 81 MG TAB.CHEW PO ONE ×2 (20:00→21:30)
--- NOTE | 2018-11-10 20:00 | NUR ---
radiology at bedside for xray
[2018-11-10 20:47] LABS: BASOPHILS % (AUTO) 0.5 % (0.0-2.0); EOSINOPHILS % (AUTO) 0.6 % (0.0-4.0); HEMATOCRIT 39.2 % (36-48); HEMOGLOBIN 12.7 g/dL (12.0-16.0); LYMPHOCYTES # (AUTO) 3.7 K/uL (1.0-5.5); LYMPHOCYTES % (AUTO) 47.1 % (20.5-51.5); MEAN CORPUSCULAR HEMOGLOBIN 26 pg (27-31); MEAN CORPUSCULAR HGB CONC 32 % (32-36); MEAN CORPUSCULAR VOLUME 81 fL (79.0-98.0); MONOCYTES # (AUTO) 0.3 K/uL (0.0-1.0); NEUTROPHILS # (AUTO) 3.7 K/uL (1.8-7.7); NEUTROPHILS % (AUTO) 47.8 % (40.0-70.0); PLATELET COUNT (AUTO) 178 K/uL (130-430); RED BLOOD CELL COUNT(AUTO) 4.81 MIL/uL (4.2-6.2); RED CELL DISTRIBUTION WIDTH 13.5 % (9.0-15.0); WHITE BLOOD COUNT (AUTO) 7.8 K/uL (4.8-10.8)
[2018-11-10 20:51] LABS: CALCIUM 9.5 mg/dL (8.4-11.0); CREATININE 0.51 mg/dL (0.55-1.30); POTASSIUM 3.6 mmol/L (3.5-5.1)
[2018-11-10 20:58] LABS: BILIRUBIN,URINE NEGATIVE (NEGATIVE); BLOOD, URINE NEGATIVE (NEGATIVE); CLARITY/URINE SL HAZY (CLEAR); COLOR,URINE YELLOW (YELLOW); GLUCOSE,URINE NEGATIVE (NEGATIVE); KETONES,URINE NEGATIVE (NEGATIVE); LEUKOCYTE ESTERASE ,URINE NEGATIVE (NEGATIVE); NITRITE, URINE NEGATIVE (NEGATIVE); PH,URINE 6.5 (5.0-8.0); PROTEIN URINE NEGATIVE (NEGATIVE); UROBILINOGEN,URINE 0.2 (0.2-1.0)
[2018-11-10 21:06] LABS: ALBUMIN 3.6 g/dL (3.4-4.8); THYROID STIMULATING HORMONE 1.2 uIu/mL (0.34-4.82); TOTAL BILIRUBIN 0.8 mg/dL (0.0-1.0)
--- NOTE | 2018-11-10 21:20 | NUR ---
Dr. Gomez at bedside discussing results with patient
[2018-11-10] MEDS ORDERED: CLON0.5T12 PO ×2 (21:25)
--- NOTE | 2018-11-10 21:26 | NUR ---
Medication reconciliation completed with information provided by patient
[2018-11-10] MEDS ORDERED: ENOXAPARIN SODIUM 120 MG/0.8 ML SYRINGE SUBCUT ONE (22:00)
--- NOTE | 2018-11-10 22:00 | NUR ---
# 22 gauge angiocath placed to RT Forearm. Use of asceptic technique. Opsite placed over site. Blood return noted. Blood for lab drawn from site. Flushed with 10 cc of normal saline. No evidence of infiltration noted. Patient tolerated well.
--- NOTE | 2018-11-10 22:03 | NUR ---
Patient will be admitted to care of Dr. Gonsalves. Admitted to telemetry unit. Will go to room 134. Belongings list completed. Summary report printed. Report will be given at bedside.
[2018-11-10 22:06] LABS: PROTHROMBIN TIME 10.2 SECS (9.5-12.5)
--- NOTE | 2018-11-10 22:25 | NUR ---
Transfer to telemetry via ACLS protocol. Licensed nurse present. IV present no signs or symptoms of infiltration.
--- NOTE | 2018-11-10 22:25 | NUR ---
ADMIT NOTE Received pt from ER to the floor with a diagnosis of chest pain. Admission process initiated. patient oriented to pain management, safety and call light-teach back done.
[2018-11-10 22:45] VITALS: BP_SYST 109
--- NOTE | 2018-11-10 23:00 | NUR ---
initial notes: pt is awake, alert. oriented x 4. no chest pain distress. no sob. iv lock to right fore arm gauge 22-patent and intact. no skin breakdown. vital sign are with normal limit. no skin breakdown. skin redness and slight swelling to left wrist- due medication side effects. explain for the plan of care. instructed to call for assistance. orient to room and call light. needs attended. low bed position. call light in reach. will monitor.
--- NOTE | 2018-11-10 23:47 | NUR ---
PAGED I PAGED / AZRA @ [phone] I SPOKE WITH JOSE ELIAS BERGER
--- NOTE | 2018-11-11 | NUR ---
pt is still awake. cant sleep. she waiting for bipap machine. no pain. no distress. needs attended. will monitor.
--- NOTE | 2018-11-11 00:14 | NUR ---
PAGED I PAGED DR. OQUENDO AGAIN THIS IS THE SECOND CALL I SPOKE WITH JOSE ELIAS BERGER
--- NOTE | 2018-11-11 00:20 | NUR ---
CONSULTATION PAGED REASON FOR CONSULTATION: CHEST PAIN WAS CONSULT CALLED? YES PERSON WHO WAS NOTIFIED: JOSE ELIAS CONSULTING PHYSICIAN: SUE FURNACE DOOR TENDER SPECIALTY: RN NEONATAL ICU FURNACE DOOR TENDER PHONE NUMBER: [phone] ORDERING PHYSICIAN: AZRA
[2018-11-11 00:32] VITALS: BP_SYST 113
--- NOTE | 2018-11-11 00:42 | NUR ---
PAGED I PAGED DR. OQUENDO @ [phone] I SPOKE WITH JOSE ELIAS BERGER THIS IS THE THIRD CALL I SPOKE WITH JOSE ELIAS EXCHANGE
--- NOTE | 2018-11-11 00:59 | NUR ---
DR. OQUENDO CALL BACK- SPOKE TO MD. ASK MD FOR BIPAP FOR PT SLEEP APNEA. MD AGREE AND ORDER. REPORT ALSO THE TROPONIN 0.068- NO ORDER MADE.
--- NOTE | 2018-11-11 02:07 | NUR ---
notes: pt is now on bipap for her sleep apnea. tolerating well. call light in reach. will monitor.
[2018-11-11 03:29] VITALS: BP_SYST 113
--- NOTE | 2018-11-11 04:15 | NUR ---
notes: sleeping, comfortable, not distress. no pain. stable. bipap on. call light in reach. will monitor.
--- NOTE | 2018-11-11 06:00 | NUR ---
NOTES: pt is resting, no au. no distress. stable. needs attended. call light in reach, side rails up. will monitor.
--- NOTE | 2018-11-11 07:15 | NUR ---
closing: pt is awake, alert. ambulatory. stable. no chest pain. iv lock intact. needs attended the whole shift. bed report given to am rn.
--- NOTE | 2018-11-11 07:20 | NUR ---
Opening notes Patient sitting up in bed, A/O x 4, no complaints of pain or discomfort. No SOB. No nausea, no vomiting noted. Lung sounds clear. Iv patent and intact. No bleeding noted. On safety precautions, bed in lowest position, 2 side rails up, educated patient on the call light system, verbalized understanding. Call light within reach. Will continue to monitor.
[2018-11-11 08:12] VITALS: BP_SYST 127
--- NOTE | 2018-11-11 08:20 | NUR ---
Critical value critical value Troponin 0.062, Dr. Partida at bedside, made aware, MD aware. No new orders, patients troponin is trending down.
--- NOTE | 2018-11-11 10:30 | NUR ---
Rounds Patient resting in bed at this time, no complaints of pain, NO SOB. Patient in stable condition. No complaints of chest pain noted.
[2018-11-11] MEDS ORDERED: DIVALPROEX SODIUM 250 MG TAB.SR.24H (DEPAKOTE ER) PO ONE (10:45)
[2018-11-11] MEDS ORDERED: METOPROLOL TARTRATE 25 MG TABLET PO ONE (10:45)
[2018-11-11] MEDS ORDERED: LOSARTAN POTASSIUM 50 MG TABLET (COZAAR) PO ONE (10:45)
[2018-11-11] MEDS ORDERED: clonazePAM 0.5 MG TABLET PO ONE (10:45)
[2018-11-11] MEDS ORDERED: ASPIRIN 81 MG TABLET(ECOTRIN) PO ONE (10:45)
[2018-11-11] MEDS ORDERED: CITALOPRAM HYDROBROMIDE 20 MG TABLET PO ONE (10:45)
[2018-11-11] MEDS ORDERED: ARIPiprazole 5 MG TAB PO ONE (10:45)
--- NOTE | 2018-11-11 10:45 | NUR ---
MD rounds Patient resting in bed, Dr. Gonsalves at bedside. No complaints of pain. Patient in stable condition at this time.
[2018-11-11] MEDS ORDERED: ENOXAPARIN SODIUM 120 MG/0.8 ML SYRINGE SQ ONE (11:00)
--- NOTE | 2018-11-11 12:00 | NUR ---
Medications All morning medications given at this time as ordered. Educated patient on use and adverse side effects of all medication. Patient verbalized understanding. All medications tolerated well, no adverse side effects noted. Patient in stable conditio.
[2018-11-11 12:54] VITALS: BP_SYST 112
--- NOTE | 2018-11-11 14:30 | NUR ---
Rounds Patient sitting up in bed, No complaints of pain. No SOB noted. Provided patient with fresh water, and offered to ambulate patient to restroom. Patient declined. No other needs at this time.
--- NOTE | 2018-11-11 15:55 | NUR ---
Critical Value Troponin 0.061, paged Dr. Partida, no new orders. Troponin is trending down.
[2018-11-11 16:24] VITALS: BP_SYST 119
--- NOTE | 2018-11-11 18:19 | NUR ---
Closing note Patient sitting up in bed, eating dinner, tolerating well. No nausea, no vomiting noted. No complaints of chest pain. IV site patent and intact. No bleeding noted. On safety precautions, bed in lowest position, 2 side rails up, call light within reach. Patient in stable condition at this time.
--- NOTE | 2018-11-11 19:15 | NUR ---
OPENING NOTES Late entry due to patient care. Bedside report received from dayshift nurse. Patient received lying in bed, awake, alert, oriented. No s/s of acute distress noted. Breathing even and unlabored. Patient denies any pain. IV site patent, no signs of infiltration or infection noted. Call light with patient. Will continue to monitor.
[2018-11-11] MEDS: ENOXAPARIN SODIUM 120 MG/0.8 ML SYRINGE SQ SCH (20:57)
[2018-11-11] MEDS ORDERED: ATORVASTATIN 10 MG TABLET PO SCH (21:00)
[2018-11-11] MEDS: METOPROLOL TARTRATE 25 MG TABLET PO SCH (21:00)
[2018-11-11] MEDS ORDERED: clonazePAM 0.5 MG TABLET PO SCH (21:00)
--- NOTE | 2018-11-11 21:00 | NUR ---
MEDPASS/REFUSED LOPRESSOR Scheduled medications administered at this time. Patient refused Lopressor, stating, "she does not take it during night time". All needs met at this time. Call light with patient.
--- NOTE | 2018-11-11 22:20 | NUR ---
DEPAKOTE Patient states that she is suppose to take Depakote 500 mg at night. Reconciled meds will be updated and MD will be notified.
[2018-11-11] MEDS ORDERED: DIVA250T PO (22:21)
--- NOTE | 2018-11-11 22:25 | NUR ---
PAGED I PAGED DR. OQUENDO @ [phone] I SPOKE WITH GLORY EXCHANGE
--- NOTE | 2018-11-11 22:40 | NUR ---
PAGED I PAGED DR. OQUENDO @ [phone] I SPOKE WITH OPAL EXCHANGE THIS IS THE SECOND CALL
--- NOTE | 2018-11-11 23:11 | NUR ---
PAGED I PAGED DR. OQUENDO @ [phone] I SPOKE WITH OPAL EXCHANGE THIS IS THE THIRD CALL
--- NOTE | 2018-11-11 23:43 | NUR ---
PAGED I PAGED [phone] @ [phone] I SPOKE WITH BLANCA SANFORD EDUCATION COUNSELOR REASON I PAGED [phone] IS BECAUSE I PAGED DR. OQUENDO THREE TIMES AND HE DID NOT CALL US BACK SO DR. SANFORD CALLED BACK @ [phone]
--- NOTE | 2018-11-11 23:50 | NUR ---
DEPAKOTE UPDATE Dr. Gtz made aware of patient's med recon update, Depakote 500 mg QHS. MD ordered for medication to be continued. Will carry out order.
[2018-11-12 00:49] VITALS: BP_SYST 141
--- NOTE | 2018-11-12 02:00 | NUR ---
ROUNDS Patient in bed sleeping at this time. BiPAP machine attached and operating. NO s/s of acute distress noted. Breathing even and unlabored. Call light with patient. Will continue to monitor.
--- NOTE | 2018-11-12 04:00 | NUR ---
ROUNDS Patient in bed sleeping comfortably. no signs of discomfort noted. Chest rise and fall even bilaterally. Bipap machine attached and operating. Call light with patient. Will continue to monitor.
[2018-11-12 06:24] LABS: BASOPHILS % (AUTO) 0.4 % (0.0-2.0); EOSINOPHILS # (AUTO) 0.1 K/uL (0.0-0.4); EOSINOPHILS % (AUTO) 1.8 % (0.0-4.0); HEMATOCRIT 37.5 % (36-48); HEMOGLOBIN 11.9 g/dL (12.0-16.0); LYMPHOCYTES % (AUTO) 58.1 % (20.5-51.5); MEAN CORPUSCULAR HEMOGLOBIN 26 pg (27-31); MEAN CORPUSCULAR HGB CONC 32 % (32-36); MEAN CORPUSCULAR VOLUME 82 fL (79.0-98.0); MONOCYTES # (AUTO) 0.3 K/uL (0.0-1.0); MONOCYTES % (AUTO) 4.2 % (1.7-9.3); NEUTROPHILS # (AUTO) 2.4 K/uL (1.8-7.7); NEUTROPHILS % (AUTO) 35.5 % (40.0-70.0); PLATELET COUNT (AUTO) 167 K/uL (130-430); RED BLOOD CELL COUNT(AUTO) 4.56 MIL/uL (4.2-6.2); RED CELL DISTRIBUTION WIDTH 13.4 % (9.0-15.0); WHITE BLOOD COUNT (AUTO) 6.8 K/uL (4.8-10.8)
--- NOTE | 2018-11-12 06:34 | NUR ---
CLOSING NOTES Patient in bed sleeping at this time. No s/s of acute distress noted. Breathing even and unlabored. HOB raised. IV site patent, no signs of infiltration or infection noted. BiPAP machine attached and operating. All needs met throughout shift. Fall and safety precautions maintained throughout shift. Will continue to monitor until patient care is endorsed to oncoming dayshift nurse.
[2018-11-12 06:51] LABS: ALBUMIN 3.2 g/dL (3.4-4.8); CALCIUM 8.9 mg/dL (8.4-11.0); CREATININE 0.6 mg/dL (0.55-1.30); POTASSIUM 4.1 mmol/L (3.5-5.1); TOTAL BILIRUBIN 0.4 mg/dL (0.0-1.0)
[2018-11-12 08:30] VITALS: BP_SYST 130
[2018-11-12] MEDS: METOPROLOL TARTRATE 25 MG TABLET PO SCH (08:48)
[2018-11-12] MEDS: ENOXAPARIN SODIUM 120 MG/0.8 ML SYRINGE SQ SCH (08:50)
[2018-11-12] MEDS ORDERED: ARIPiprazole 5 MG TAB PO SCH (09:00)
[2018-11-12] MEDS ORDERED: ASPIRIN 81 MG TABLET(ECOTRIN) PO SCH (09:00)
[2018-11-12] MEDS ORDERED: CITALOPRAM HYDROBROMIDE 20 MG TABLET PO SCH (09:00)
[2018-11-12] MEDS ORDERED: DIVALPROEX SODIUM 250 MG TAB.SR.24H (DEPAKOTE ER) PO SCH ×2 (09:00→21:00)
[2018-11-12] MEDS ORDERED: clonazePAM 0.5 MG TABLET PO SCH (09:00)
[2018-11-12] MEDS ORDERED: LOSARTAN POTASSIUM 50 MG TABLET (COZAAR) PO SCH (09:00)
--- NOTE | 2018-11-12 09:30 | NUR ---
Medications Patient refused Lovenox injection stating she does not like it and does not want it. Educated patient on the importance of lovenox for DVT prophylaxis, patient verbalized understanding but continues to refuse. All morning medications given as ordered. Patient resting in bed at this time, no complaints of pain, NO SOB. Patient in stable condition. No complaints of chest pain noted.
[2018-11-12 11:25] VITALS: BP_SYST 140
--- NOTE | 2018-11-12 11:30 | NUR ---
Rounds Patient sitting up in bed, made aware of discharge, patient states her sister will pick her up today at 12pm. Discharge instruction provided. Patient in stable condition at this time.
--- NOTE | 2018-11-12 13:53 | NUR ---
D/C Patient Patient given medication reconciliation form and D/C instructions.Patient to see psychiatrist, emt i/85, and PCP within 1 week.Exit Care provided. Patient verbalized understanding. MD discussed with patient the results and treatment provided. Ambulatory with steady gait for discharge to home. Patient in stable condition, ID band removed. IV catheter removed, intact and dressing applied, no active bleeding.Patient educated on pain management. All belongings sent with patient.
== END 2018-11-12 12:10 | disposition home or self-care (01) | DRG 190 ==
LOC: SED 13:50 → STU 21:47
PROVIDERS: ADMIT Internal Medicine Hospice and Palliative Medicine; ATTEND Internal Medicine Hospice and Palliative Medicine
PROC: 5A09457 Assistance with Respiratory Ventilation, 24-96 Consecutive Hours, Continuous Positive Airway Pressure (ICD-10-PCS; principal; 2018-11-11)
DX: I21.A1 Myocardial infarction type 2 (principal); E66.01 Morbid (severe) obesity due to excess calories; F41.9 Anxiety disorder, unspecified; I10 Essential (primary) hypertension; E78.5 Hyperlipidemia, unspecified; K21.9 Gastro-esophageal reflux disease without esophagitis; F31.9 Bipolar disorder, unspecified; F41.1 Generalized anxiety disorder; Z82.0 Family history of epilepsy and other diseases of the nervous system; T43.95XA Adverse effect of unspecified psychotropic drug, initial encounter; Z86.718 Personal history of other venous thrombosis and embolism; Z90.6 Acquired absence of other parts of urinary tract; Z90.710 Acquired absence of both cervix and uterus; Z88.1 Allergy status to other antibiotic agents; Z88.8 Allergy status to other drugs, medicaments and biological substances; Z79.899 Other long term (current) drug therapy; Z87.891 Personal history of nicotine dependence; Y92.89 Other specified places as the place of occurrence of the external cause; Z68.42 Body mass index [BMI] 45.0-49.9, adult
CPT/HCPCS: 36415; 71045; 80053; 80061; 81003; 82550-TC; 83880; 84443-TC; 84484; 85025; 85379; 85610-TC; 85730-TC; 93005; 93306; 94660; 96372; 99285; G0378; J1650

== ENCOUNTER 2019-05-04 12:04 | Emergency (ER) | payer MEDICAID ==
[~2019-05-04] VITALS: Ht 167.6 cm; Wt 133.8 kg
[~2019-05-04 12:04] MED LIST changes: +CLON0.5T12 PO; -CLON2TAB11 PO; -DIVA500T PO
[2019-05-04 12:34] VITALS: BP_SYST 163
--- NOTE | 2019-05-04 15:10 | NUR ---
Pt placed in bed 8
--- NOTE | 2019-05-04 15:20 | NUR ---
Patient brought in by self ambulated to bedside. Patient is AAOx 4, complaining of left upper arm swelling starting this morning. Patient denies any pain. Patient reports has history of DVT. No other complaints/injuries per patient or as noted. Will continue to monitor.
--- NOTE | 2019-05-04 15:31 | NUR ---
ER at bedside examining patient.
[2019-05-04] MEDS ORDERED: RIVAROXABAN 15 MG TABLET PO ONE (15:45)
--- NOTE | 2019-05-04 16:10 | NUR ---
medicated per md orders.
[2019-05-04 16:25] VITALS: BP_SYST 145
--- NOTE | 2019-05-04 16:25 | NUR ---
Patient given written and verbal discharge instructions and verbalizes understanding. ER MD discussed with patient the results and treatment provided. Patient in stable condition. ID arm band removed. Rx of Xarelto given. Patient educated on pain management and to follow up with PMD. Pain Scale 0/10 Opportunity for questions provided and answered. Medication side effect fact sheet provided.
== END 2019-05-04 16:25 | disposition home or self-care (01) ==
LOC: SED 12:04
DX: I82.622 Acute embolism and thrombosis of deep veins of left upper extremity (principal); K21.9 Gastro-esophageal reflux disease without esophagitis; I10 Essential (primary) hypertension; E78.5 Hyperlipidemia, unspecified; F31.9 Bipolar disorder, unspecified; D21.9 Benign neoplasm of connective and other soft tissue, unspecified; Z79.82 Long term (current) use of aspirin; Z79.899 Other long term (current) drug therapy; Z90.49 Acquired absence of other specified parts of digestive tract; Z88.1 Allergy status to other antibiotic agents
CPT/HCPCS: 93971; 99284

== ENCOUNTER 2019-07-25 19:24 | Emergency (ER) | payer MEDICAID ==
[~2019-07-25] VITALS: Ht 167.6 cm; Wt 136.1 kg
[2019-07-25 20:02] VITALS: BP_SYST 200
--- NOTE | 2019-07-25 21:00 | NUR ---
Pt placed to ER bed 02. Report given to ANGIE Lora.
--- NOTE | 2019-07-25 21:14 | NUR ---
Pt AAOx4 ambulated into ED c/o L foot pain x 1.5 week s/p twisting ankle. Pt concerned due to treatment of recent blood clot in L arm. No swelling/redness to site. Will continue to monitor.
[2019-07-25 21:20] LABS: BASOPHILS % (AUTO) 0.3 % (0.0-2.0); EOSINOPHILS # (AUTO) 0.1 K/uL (0.0-0.4); HEMATOCRIT 38.5 % (36-48); HEMOGLOBIN 12.2 g/dL (12.0-16.0); LYMPHOCYTES # (AUTO) 2.5 K/uL (1.0-5.5); LYMPHOCYTES % (AUTO) 36.7 % (20.5-51.5); MEAN CORPUSCULAR HEMOGLOBIN 26 pg (27-31); MEAN CORPUSCULAR HGB CONC 32 % (32-36); MEAN CORPUSCULAR VOLUME 83 fL (79.0-98.0); MONOCYTES # (AUTO) 0.3 K/uL (0.0-1.0); MONOCYTES % (AUTO) 4.6 % (1.7-9.3); NEUTROPHILS # (AUTO) 3.9 K/uL (1.8-7.7); NEUTROPHILS % (AUTO) 57.4 % (40.0-70.0); PLATELET COUNT (AUTO) 166 K/uL (130-430); RED BLOOD CELL COUNT(AUTO) 4.64 MIL/uL (4.2-6.2); RED CELL DISTRIBUTION WIDTH 13.8 % (9.0-15.0); WHITE BLOOD COUNT (AUTO) 6.8 K/uL (4.8-10.8)
--- NOTE | 2019-07-25 21:20 | NUR ---
ER Dr. Sosa at bedside examining patient.
[2019-07-25 21:29] LABS: CALCIUM 8.7 mg/dL (8.4-11.0); CREATININE 0.6 mg/dL (0.55-1.30); POTASSIUM 4.1 mmol/L (3.5-5.1); PROTHROMBIN TIME 9.7 SECS (9.5-12.5)
[2019-07-25 21:30] LABS: BILIRUBIN,URINE NEGATIVE (NEGATIVE); BLOOD, URINE NEGATIVE (NEGATIVE); CLARITY/URINE CLEAR (CLEAR); COLOR,URINE YELLOW (YELLOW); GLUCOSE,URINE NEGATIVE (NEGATIVE); KETONES,URINE NEGATIVE (NEGATIVE); LEUKOCYTE ESTERASE ,URINE NEGATIVE (NEGATIVE); NITRITE, URINE NEGATIVE (NEGATIVE); PROTEIN URINE TRACE (NEGATIVE); UROBILINOGEN,URINE 0.2 (0.2-1.0)
[2019-07-25 21:35] LABS: ALBUMIN 3.5 g/dL (3.4-4.8); TOTAL BILIRUBIN 0.4 mg/dL (0.0-1.0)
[2019-07-25] MEDS ORDERED: ACETAMINOPHEN 500 MG TABLET PO ONE (23:00)
--- NOTE | 2019-07-25 23:34 | NUR ---
Radiology at bedside.
--- NOTE | 2019-07-26 01:33 | NUR ---
Patient given written and verbal discharge instructions and verbalizes understanding. ER MD Sosa discussed with patient the results and treatment provided. Patient in stable condition. ID arm band removed. Rx of Ibuprofen given. Patient educated on pain management and to follow up with PMD. Pain Scale 0. Opportunity for questions provided and answered. Medication side effect fact sheet provided.
[2019-07-26 01:42] VITALS: BP_SYST 169
== END 2019-07-26 01:33 | disposition home or self-care (01) ==
LOC: SED 19:24
DX: S92.812A Other fracture of left foot, initial encounter for closed fracture (principal); K21.9 Gastro-esophageal reflux disease without esophagitis; I10 Essential (primary) hypertension; E78.5 Hyperlipidemia, unspecified; G47.00 Insomnia, unspecified; Z86.718 Personal history of other venous thrombosis and embolism; Z90.710 Acquired absence of both cervix and uterus; Z79.82 Long term (current) use of aspirin; Z79.899 Other long term (current) drug therapy; Z88.1 Allergy status to other antibiotic agents; Z88.8 Allergy status to other drugs, medicaments and biological substances; W10.1XXA Fall (on)(from) sidewalk curb, initial encounter; Y93.89 Activity, other specified; Y92.89 Other specified places as the place of occurrence of the external cause; Y99.8 Other external cause status
CPT/HCPCS: 36415; 73590-TC; 80053; 81003; 85025; 85379; 85610-TC; 85730-TC; 93971; 99285

== ENCOUNTER 2020-02-19 11:16 | Emergency (ER) | payer MEDICAID ==
[~2020-02-19] VITALS: Ht 172.7 cm; Wt 134.7 kg
[~2020-02-19 11:16] MED LIST changes: -ASPI-1153 PO; +ASPI-1393 PO; -CLON0.5T12 PO; +CLON0.5T4 PO
[2020-02-19 11:22] VITALS: BP_SYST 204
[2020-02-19 14:35] VITALS: BP_SYST 176
== END 2020-02-19 14:35 | disposition home or self-care (01) ==
LOC: SED 11:16
DX: M79.601 Pain in right arm (principal); M79.602 Pain in left arm; I10 Essential (primary) hypertension; K21.9 Gastro-esophageal reflux disease without esophagitis; E87.5 Hyperkalemia; G47.30 Sleep apnea, unspecified; Z86.718 Personal history of other venous thrombosis and embolism; Z79.899 Other long term (current) drug therapy; Z79.82 Long term (current) use of aspirin; Z88.1 Allergy status to other antibiotic agents
CPT/HCPCS: 93970; 99284

== ENCOUNTER 2020-09-30 19:37 | Emergency (ER) | payer MEDICAID ==
[~2020-09-30] VITALS: Ht 167.6 cm; Wt 136.1 kg
[2020-09-30 19:40] VITALS: BP_SYST 164
[2020-09-30] MEDS ORDERED: NACL 0.9% 1,000 ML IV ONE (20:15)
[2020-09-30 20:30] LABS: BILIRUBIN,URINE NEGATIVE (NEGATIVE); BLOOD, URINE NEGATIVE (NEGATIVE); CLARITY/URINE CLEAR (CLEAR); COLOR,URINE YELLOW (YELLOW); GLUCOSE,URINE NEGATIVE (NEGATIVE); KETONES,URINE NEGATIVE (NEGATIVE); LEUKOCYTE ESTERASE ,URINE TRACE (NEGATIVE); NITRITE, URINE NEGATIVE (NEGATIVE); PROTEIN URINE 2+ (NEGATIVE); UROBILINOGEN,URINE 0.2 (0.2-1.0)
[2020-09-30 20:44] LABS: BACTERIA,URINE FEW /HPF (None Seen); MUCUS,URINE None Seen /LPF (None Seen); RBC,URINE NONE SEEN /HPF (0-3)
[2020-09-30] MEDS ORDERED: IOHEXOL 350 mgI/mL, 150 ML INFUS..BTL IV ONE (20:51)
[2020-09-30 21:00] LABS: HEMOGLOBIN 12.7 g/dL (12.0-16.0)
[2020-09-30 21:04] LABS: CALCIUM 9.4 mg/dL (8.4-11.0); CREATININE 0.67 mg/dL (0.55-1.30); POTASSIUM 3.9 mmol/L (3.5-5.1)
[2020-09-30 21:05] LABS: BASOPHILS % (AUTO) 0.5 % (0.0-2.0); EOSINOPHILS # (AUTO) 0.1 K/uL (0.0-0.4); EOSINOPHILS % (AUTO) 1.2 % (0.0-4.0); HEMATOCRIT 39.9 % (36-48); LYMPHOCYTES # (AUTO) 3.5 K/uL (1.0-5.5); LYMPHOCYTES % (AUTO) 49.2 % (20.5-51.5); MEAN CORPUSCULAR HEMOGLOBIN 26 pg (27-31); MEAN CORPUSCULAR HGB CONC 32 % (32-36); MEAN CORPUSCULAR VOLUME 82 fL (79.0-98.0); MONOCYTES # (AUTO) 0.3 K/uL (0.0-1.0); NEUTROPHILS # (AUTO) 3.2 K/uL (1.8-7.7); NEUTROPHILS % (AUTO) 45.1 % (40.0-70.0); PLATELET COUNT (AUTO) 162 K/uL (130-430); RED BLOOD CELL COUNT(AUTO) 4.89 MIL/uL (4.2-6.2); RED CELL DISTRIBUTION WIDTH 13.5 % (9.0-15.0)
[2020-09-30 21:09] LABS: ALBUMIN 3.8 g/dL (3.4-4.8); TOTAL BILIRUBIN 0.4 mg/dL (0.0-1.0)
[2020-09-30] MEDS ORDERED: TRAM50TA2 PO (21:42)
[2020-09-30 21:52] VITALS: BP_SYST 164
== END 2020-09-30 21:52 | disposition home or self-care (01) ==
LOC: SED 19:37
DX: R10.31 Right lower quadrant pain (principal); I10 Essential (primary) hypertension; K21.9 Gastro-esophageal reflux disease without esophagitis; E78.5 Hyperlipidemia, unspecified; G47.30 Sleep apnea, unspecified; Z90.710 Acquired absence of both cervix and uterus; Z79.899 Other long term (current) drug therapy; Z79.82 Long term (current) use of aspirin; Z88.1 Allergy status to other antibiotic agents
CPT/HCPCS: 36415; 74177; 76376; 80053; 81000; 81025; 83690; 85025; 96360; 99284; J7030; Q9967

== ENCOUNTER 2023-01-24 22:39 | Emergency (ER) | payer MEDICAID ==
[~2023-01-24] VITALS: Ht 167.6 cm; Wt 145.1 kg
[~2023-01-24 22:39] MED LIST changes: +TRAM50TA2 PO
[2023-01-24 23:02] VITALS: BP_SYST 177; PULSE 72; RESP 17; TEMP 96.8; O2SAT 95
[2023-01-25 01:34] LABS: BASOPHILS % (AUTO) 0.4 % (0.0-2.0); EOSINOPHILS # (AUTO) 0.1 K/uL (0.0-0.4); HEMATOCRIT 38.7 % (36-48); HEMOGLOBIN 12.6 g/dL (12.0-16.0); LYMPHOCYTES # (AUTO) 3.2 K/uL (1.0-5.5); LYMPHOCYTES % (AUTO) 48.8 % (20.5-51.5); MEAN CORPUSCULAR HEMOGLOBIN 26 pg (27-31); MEAN CORPUSCULAR HGB CONC 33 % (32-36); MEAN CORPUSCULAR VOLUME 81 fL (79.0-98.0); MONOCYTES # (AUTO) 0.3 K/uL (0.0-1.0); MONOCYTES % (AUTO) 5.1 % (1.7-9.3); NEUTROPHILS # (AUTO) 2.8 K/uL (1.8-7.7); NEUTROPHILS % (AUTO) 43.7 % (40.0-70.0); PLATELET COUNT (AUTO) 164 K/uL (130-430); RED BLOOD CELL COUNT(AUTO) 4.79 MIL/uL (4.2-6.2); WHITE BLOOD COUNT (AUTO) 6.5 K/uL (4.8-10.8)
[2023-01-25 01:53] LABS: CALCIUM 9.3 mg/dL (8.4-11.0); CREATININE 0.57 mg/dL (0.55-1.30); POTASSIUM 3.8 mmol/L (3.5-5.1)
[2023-01-25 02:06] LABS: ALBUMIN 3.8 g/dL (3.4-4.8); THYROID STIMULATING HORMONE 2.69 uIu/mL (0.34-4.82); TOTAL BILIRUBIN 0.6 mg/dL (0.0-1.0); TOTAL PROTEIN, SERUM 7.1 g/dL (6.4-8.3)
[2023-01-25 03:28] VITALS: BP_SYST 177; PULSE 72; RESP 17; TEMP 96.9; O2SAT 95
== END 2023-01-25 03:29 | disposition left against medical advice (07) ==
LOC: SED 22:39
DX: R22.1 Localized swelling, mass and lump, neck (principal); R13.19 Other dysphagia; K21.9 Gastro-esophageal reflux disease without esophagitis; I10 Essential (primary) hypertension; Z88.1 Allergy status to other antibiotic agents; Z79.899 Other long term (current) drug therapy
CPT/HCPCS: 99285; 80053; 84439; 84443; 85025; 36415; 70491; 76376; Q9967